=== PATIENT | female | born 1970 | race Caucasian/White ===

== ENCOUNTER → 2016-12-29 | Outpatient (CLI) | payer OTHER ==
[~2016-12-29] VITALS: Ht 167.6 cm; Wt 80.8 kg
[~2016-12-29] MED LIST: ALPRAZOLAM 0.50.5 M1 PO; AMANTADINE 100100 MG PO; AMBIEN 10 MG TA10 MG PO; AVONEX PEN30 MCG/0.1 IM; BACLOFEN 10 MG10 MG PO; CLONAZEPAM 1 MG1 M1 PO; COUMADIN 5 MG TA5 M1 PO; DEPAKOTE 250MG250 M1 PO; DICLOFENAC SODI75 M1 PO; FENOFIBRATE160 MG PO; GLUCOPHAGE500 MG PO; HYDROXYZINE HCL10 M1 PO; IBUPROFEN 600600 M1 PO; IMITREX 25 MG T25 M1 PO; IMITREX6 MG/0.5 M SQ; INDERAL LA60 M1 PO; KLONOPIN0.5 MG PO; KLOR-CON 1010 MEQ PO; LAMOTRIGINE200 MG PO; LASIX 20 MG TAB20 MG PO; LATUDA40 MG PO; LIPITOR10 MG PO; LUNESTA3 MG PO; METHOCARBAMOL750 MG PO; NEURONTIN600 MG PO; NEURONTIN800 MG PO; OMEPRAZOLE20 M2 PO; OXYCODONE HCL 55 MG PO; OXYCONTIN10 M1 PO; OXYCONTIN15 MG PO; PHENERGAN 25 MG25 M1 PO; PREMARIN1.25 MG PO; REMERON15 MG PO; REMERON45 MG PO; ROXICODONE5 M2 PO; SIMVASTATIN40 MG PO; STRATTERA PO; STRATTERA25 MG PO; TECFIDERA240 MG PO; TIZANIDINE HCL4 MG PO; VIIBRYD40 MG PO; ZANAFLEX4 M1 PO; ZANAFLEX4 MG PO
--- NOTE | ~2016-12-29 | HPC ---
[facility] [place] [address] PAIN MANAGEMENT CONSULTATION Name: RIKKILESTER J Room #: REG SHEYLA Cage#: [id number] Admission: 12/29/16 Attend Phys: Marco Antonio Cope DO Discharge: Date of : 68 Report #: [id number] THIS REPORT FOR: //name// CC: Tobias Cope The patient is a 46-year-old female being treated for symptomatic lumbar radiculopathy, status post decompressive laminectomy and SI joint dysfunction. She has a history of IV methamphetamine abuse. We are simply trying to manage symptoms. I gave her prescription at last visit for ibuprofen 600 mg b.i.d.-t.i.d. as she had been taking in the past, though I gave her the strong caveat that she needs to follow up with her occupational health physician before filling this prescription. 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 She had SI joint injections at last visit with nominal efficacy, returns to pain clinic today, 5 days off Coumadin. Her INR is 1.0. We have elected to proceed with epidural injection under fluoroscopy today. Resume Coumadin tonight. Follow up in about 10 weeks. In 4 weeks, she is going to have a right knee arthroscopic surgery. PROCEDURE NOTE: Lumbar epidural injection under fluoroscopy. DESCRIPTION OF PROCEDURE: After both written and informed consent to include risk of spinal cord damage, increased pain, weakness and dural puncture, the patient was taken to the fluoroscopy suite, placed in the prone position. After sterile prep and drape, a skin wheal with lidocaine was raised. A 22-gauge epidural Tuohy needle was inserted in the midline at L4-L5 with good loss to resistance. Negative aspiration for cerebrospinal fluid or blood was noted. Then 1 mL of Omnipaque under biplanar fluoroscopy showed good spread within the epidural space. This was followed with 80 mg of triamcinolone plus 1 mL of 1.5% preservative-free Xylocaine, 0.5 mL Xylocaine was then injected to flush the needle; it was removed. The patient was monitored for an appropriate period of time and discharged in good and stable condition. <ELECTRONICALLY SIGNED> By: Marco Antonio Cope DO 01/04/17 [id number] Marco Antonio Cope DO /nt
[2016-12-29 13:57] VITALS: BP 111/77
== END | disposition home or self-care (01) ==
LOC: PAIN 07:36
DX: M54.16 Radiculopathy, lumbar region (principal); M53.3 Sacrococcygeal disorders, not elsewhere classified